=== PATIENT | female | born 1960 | race Caucasian/White ===

== ENCOUNTER 2021-06-13 19:15 | Inpatient (IN) | payer MEDICAID ==
[~2021-06-13] VITALS: Ht 162.6 cm; Wt 63.6 kg
[2021-06-13 20:22] LABS: EOSINOPHILS % (AUTO) 0 % (0-6); HEMATOCRIT 42.2 % (35.0-45.0); HEMOGLOBIN 14.4 g/dl (12.0-16.0); LYMPHOCYTES # (AUTO) 1.7 X10'3 (1.1-4.8); LYMPHOCYTES % (AUTO) 36.2 % (21-51); MEAN CORPUSCULAR VOLUME 82.1 FL (78-98); MEAN PLATELET VOLUME 9.4 FL (7.4-10.4); MONOCYTES % (AUTO) 21.9 % (2-12); NEUTROPHILS # (AUTO) 1.9 X10'3 (1.8-7.7); NEUTROPHILS % (AUTO) 40.9 % (42-75); PLATELET COUNT 321 X10'3 (140-440); RED BLOOD COUNT 5.14 X10'6 (4.20-5.60); RED CELL DISTRIBUTION WIDTH 15.8 % (11.5-14.5); WHITE BLOOD COUNT 4.7 X10'3 (4.5-11.0)
[2021-06-13 20:37] LABS: ALANINE AMINOTRANSFERASE 38 U/L (12-78); ALBUMIN 3.4 G/DL (3.4-5.0); ALBUMIN/GLOBULIN RATIO 0.9 (1.1-1.5); ALKALINE PHOSPHATASE 45 IU/L (46-116); ANION GAP 10 (8-16); ASPARTATE AMINO TRANSFERASE 33 U/L (10-37); BILIRUBIN,TOTAL 0.2 MG/DL (0.1-1.0); BLOOD UREA NITROGEN 15 MG/DL (7-18); BUN/CREATININE RATIO 19.2 (6.6-38.0); CALCIUM 7.8 MG/DL (8.5-10.1); CHLORIDE 102 MMOL/L (99-107); CREATININE 0.78 MG/DL (0.40-0.90); GLUCOSE 126 MG/DL (70-104); POTASSIUM 3.8 MMOL/L (3.5-5.1); SODIUM 138 MMOL/L (135-145); TOTAL CARBON DIOXIDE 26.4 MMOL/L (24-32); TOTAL PROTEIN 7.1 G/DL (6.4-8.2); eGFR 76 ML/MIN
[2021-06-13 21:55] LABS: TOTAL CELLS COUNTED 100
[2021-06-13 21:56] LABS: GIANT PLATELET FEW; PLATELET ESTIMATE NORMAL
[2021-06-13] MEDS ORDERED: aspirin 325mg tablet PO ONE (22:55)
[2021-06-13 23:43] LABS: CLARITY,URINE SLIGHTLY CLOUDY (Clear); COLOR,URINE YELLOW (Yellow); GLUCOSE, URINE NEGATIVE (Neg); KETONES,URINE 40 mg/dl (Neg); LEUKOCYTE ESTERASE ,URINE NEGATIVE (Neg); NITRITES, URINE NEGATIVE (Neg); OCCULT BLOOD,URINE NEGATIVE (Neg); PROTEIN,URINE TRACE mg/dl (Neg); UA COLLECTION TYPE STRAIGHT CATH; UROBILINOGEN,URINE 0.2 E.U/dL (0.2-1.0)
[2021-06-13] MEDS ORDERED: LEVO112T5 PO (23:50)
[2021-06-13 23:51] LABS: MUCUS STRANDS MANY /LPF (Neg); SQUAMOUS EPITHELIAL CELL,UR FEW /LPF (FEW); WBC CLUMPS,URINE FEW /HPF (NEGATIVE)
[2021-06-13 23:55] LABS: CELLULAR CAST 0-4 /LPF (NEGATIVE); RBC,URINE 0-2 /HPF (0-2); RENAL CELLS, URINE FEW /HPF
[2021-06-13 23:56] LABS: BACTERIA,URINE FEW /HPF (Neg)
[2021-06-14] MEDS ORDERED: ondansetron/PF 4mg/2ml inj IV PRN (00:35)
[2021-06-14] MEDS ORDERED: potassium Cl 20 mEq SR tablet PO PRN (00:35)
[2021-06-14] MEDS ORDERED: acetaminophen 325mg tablet PO PRN (00:35)
[2021-06-14] MEDS ORDERED: potassium Cl 40MEQ/1/2NS 520ml 520 ML IV PRN ×2 (00:35)
--- NOTE | 2021-06-14 04:10 | NUR ---
Patient was reported by another nurse to be walking disoriented in the hallway. Patient reportedly required redirection back to room. This nurse was eventually notified and patient found to be resting upon assessment.
[2021-06-14] MEDS: K and/or MAG REPLACEMENT MC SCH ×2 (08:00→20:00)
[2021-06-14] MEDS ORDERED: PERFLUTREN PROTEIN-A MICROSPHR (Optison) 0.22 MG/ML 3ML VIAL IV ONE (08:00)
[2021-06-14] MEDS: levoTHYROXINE 112mcg tablet PO SCH (10:31)
[2021-06-14] MEDS: heparin, porcine 5000 units/ml vial SQ SCH ×2 (10:31→21:24)
--- NOTE | 2021-06-14 13:42 | NUR ---
PT SLEEPING ON GURNEY IN NO ACUTE DISTRESS
--- NOTE | 2021-06-14 15:24 | NUR ---
pt requesting to use restroom while standing at the end of the gurney. pt needed little assist to restroom due to unsteady gait. pt stated she was not hungry and got back on gurney.
[2021-06-14 17:51] VITALS: BP 97/65
[2021-06-14 18:00] VITALS: BP 118/59
--- NOTE | 2021-06-14 18:00 | NUR ---
Patient in room PCU 3017. I have received report from KAYLAN ATKINS and had the opportunity to ask questions and assume patient care.2 RN SKIN CHECK , MRSA SWAB DONE.
[2021-06-14 22:00] VITALS: BP 130/66
[2021-06-15 01:58] VITALS: BP 108/63
--- NOTE | 2021-06-15 05:58 | NUR ---
PATIENT PUYLLED OUT IV, CONTINUES TO BE DISORIENTED. NEW IV RIGHT FA,; CALLED FOR UPDATE, INFORMED HIM OF DIAGNOSTIC FINDINGS AND THAT FURTHER EVALUATIONS WITH PT/OT/ST ARE ORDERED. SHAYAN ATKINS
[2021-06-15 06:00] VITALS: BP_SYST 115; BP_SYST 144; BP_DIAS 63; BP_DIAS 76
--- NOTE | 2021-06-15 06:09 | NUR ---
Problems reprioritized. Patient report given, questions answered & plan of care reviewed with NORIS ATKINS.
[2021-06-15 06:30] LABS: EOSINOPHILS % (AUTO) 0.1 % (0-6); MEAN CORPUSCULAR HEMOGLOBIN 27.7 PG (27.0-31.0); MONOCYTES # (AUTO) 1.1 X10'3 (0-0.9); NEUTROPHILS # (AUTO) 0.7 X10'3 (1.8-7.7)
[2021-06-15 06:32] LABS: BASOPHILS % (AUTO) 0.9 % (0-1); HEMATOCRIT 42.2 % (35.0-45.0); LYMPHOCYTES # (AUTO) 2.4 X10'3 (1.1-4.8); LYMPHOCYTES % (AUTO) 57.4 % (21-51); MEAN CORPUSCULAR HGB CONC 33.3 g/dL (33.0-36.5); MEAN CORPUSCULAR VOLUME 83.1 FL (78-98); MEAN PLATELET VOLUME 10.4 FL (7.4-10.4); MONOCYTES % (AUTO) 24.7 % (2-12); NEUTROPHILS % (AUTO) 16.9 % (42-75); PLATELET COUNT 279 X10'3 (140-440); RED BLOOD COUNT 5.07 X10'6 (4.20-5.60); WHITE BLOOD COUNT 4.2 X10'3 (4.5-11.0)
[2021-06-15 06:39] LABS: ALANINE AMINOTRANSFERASE 39 U/L (12-78); ALBUMIN 3.2 G/DL (3.4-5.0); ALBUMIN/GLOBULIN RATIO 0.9 (1.1-1.5); ALKALINE PHOSPHATASE 37 IU/L (46-116); ANION GAP 11 (8-16); ASPARTATE AMINO TRANSFERASE 33 U/L (10-37); BILIRUBIN,TOTAL 0.2 MG/DL (0.1-1.0); BLOOD UREA NITROGEN 16 MG/DL (7-18); BUN/CREATININE RATIO 21.6 (6.6-38.0); CHLORIDE 104 MMOL/L (99-107); CREATININE 0.74 MG/DL (0.40-0.90); GLUCOSE 87 MG/DL (70-104); POTASSIUM 3.4 MMOL/L (3.5-5.1); SODIUM 140 MMOL/L (135-145); TOTAL CARBON DIOXIDE 25.4 MMOL/L (24-32); TOTAL PROTEIN 6.6 G/DL (6.4-8.2); eGFR 80 ML/MIN
[2021-06-15] MEDS: K and/or MAG REPLACEMENT MC SCH (06:54)
--- NOTE | 2021-06-15 06:56 | NUR ---
Patient in room PCU 3017. I have received report from WILBERT CORBETT, and had the opportunity to ask questions and assume patient care.
[2021-06-15] MEDS: potassium Cl 20 mEq SR tablet PO PRN ×2 (08:05→13:54)
[2021-06-15] MEDS: heparin, porcine 5000 units/ml vial SQ SCH (08:06)
[2021-06-15] MEDS: levoTHYROXINE 112mcg tablet PO SCH (08:06)
[2021-06-15 11:00] VITALS: BP 117/64
[2021-06-15 11:30] VITALS: BP_SYST 110; BP_SYST 118; BP_SYST 122; BP_DIAS 59; BP_DIAS 65; BP_DIAS 75
[2021-06-15] MEDS ORDERED: levoTHYROXINE 112mcg tablet PO SCH (11:45)
--- NOTE | 2021-06-15 11:46 | NUR ---
PAGE SENT PAGER ID: [phone] MESSAGE: 3015H, JIM FUNEZ, ORTHOS - LAYING, 122/75, HR 88, SITTING, 118/59, HR 97, STANDING, 110/65, HR 99. THANK YOU, NORIS [id number]
[2021-06-15 15:00] VITALS: BP 89/54
--- NOTE | 2021-06-15 19:14 | NUR ---
PT STABLE FOR DISCHARGE PER MD. BELONGINGS RETURNED TO PT. DISCHARGE AND FOLLOW UP INSTRUCTIONS REVIEWED WITH PT. PT GIVEN OPPORTUNITY TO ASK QUESTIONS. APPROPRIATE PAPER WORK WAS SIGNED. PIV REMOVED WITH TIP INTACT. PT WAS WHEELED TO PRIVATE VEHICLE BY HOSPITAL STAFF. PT WAS TRANSPORTED HOME.
== END 2021-06-15 18:30 | disposition home or self-care (01) | DRG 204 ==
LOC: ER 19:16 → ED HOLD 06-14 00:36 → PCU 3S 06-14 17:10
PROVIDERS: ADMIT Internal Medicine; ATTEND Internal Medicine
DX: R55 Syncope and collapse (principal); R47.01 Aphasia; E03.9 Hypothyroidism, unspecified; R11.0 Nausea; R26.0 Ataxic gait; W18.39XA Other fall on same level, initial encounter; Y93.89 Activity, other specified; Y92.098 Other place in other non-institutional residence as the place of occurrence of the external cause; Y99.8 Other external cause status; Z79.890 Hormone replacement therapy
CPT/HCPCS: 36415; 70450; 70551; 71045; 72125; 80053; 81001; 82607; 83880; 84484; 85007; 85025; 87081; 93005; 93306; 93880; 97116; 97161; 97530; 99285; G0378; J1644